=== PATIENT | female | born 1955 | race Caucasian/White ===

== ENCOUNTER 2020-01-09 06:51 | Outpatient (NON) | payer MEDICARE, SELFPAY ==
[2020-01-09 19:47] LABS: SARS-CoV-2 RNA PCR Negative
== END 2020-01-09 06:52 ==
LOC: ANHCOVIDDT 07:03
PROVIDERS: PCP Family Medicine; Visit Provider Physician Assistant
DX: Z20.828 Contact with and (suspected) exposure to other viral communicable diseases (principal)
CPT/HCPCS: 87635; C9803; U0003

== ENCOUNTER → 2021-05-09 17:37 | Outpatient (CLI) | payer MEDICARE, SELFPAY ==
--- NOTE | ~2021-05-09 | DEXA_ITS ---
Bone Density Report Name: ESSIE MARTIN Age: 66 Sex: Female Ethnicity: White Date of : 1955 Indication: postmenopausal; screening for osteoporosis; height loss; prior fracture; Referring Provider: HAMZAH OLMOS Study: Bone densitometry was performed. Exam Date: May 09, 2021 Accession number: [id number] Bone Density: Region BMD T-score Z-score Classification AP Spine (L1-L4) 1.083 0.3 2.2 Normal Femoral Neck (Left) 0.715 -1.2 0.4 Osteopenia Total Hip (Left) 0.891 -0.4 0.9 Normal Femoral Neck (Right) 0.713 -1.2 0.4 Osteopenia Total Hip (Right) 0.883 -0.5 0.9 Normal Total Hip Mean 0.887 -0.5 0.9 Normal World Health Organization criteria for BMD impression classify patients as: Normal (T-score at or above -1.0), Osteopenia (T-score between -1.0 and -2.5), or Osteoporosis (T-score at or below -2.5). 10-year Fracture Risk: FRAX not reported because: Prior hip or vertebral fracture Clinical Information Provided by Patient: Have had a previous hip or vertebral fracture Has had a low trauma fracture Patient maximum height was 65.0 Menopause Age: 56 Drinks caffeinated beverages Onset of menses at age 9 Number of children 2 Impression: The patient has low bone mass, based on the Left Femoral Neck T-score. The patient has risk factors, including: previous fracture. Discussion: INCREASED RISK OF FRACTURE DUE TO HISTORY OF FRACTURE. The patient's previous fracture puts the patient at high risk of a future fracture. In untreated patients, the risk of osteoporotic fracture increases approximately two-fold for each 1.0 SD decrease in T-score. Low bone density is not the only risk factor for fracture; also consider factors such as patient's age, frailty or poor health, risk of falling, risk of injury, previous osteoporotic fracture, family history of osteoporosis, cigarette smoking, low body weight, etc. Not everyone with a low trauma fracture has osteoporosis; osteomalacia and other metabolic bone disorders should also be considered. Patients who have osteoporosis should be evaluated for specific diseases and conditions (secondary causes) that may cause or contribute to bone loss and fracture risk. National Osteoporosis Foundation (NOF) recommends pharmacologic intervention for patients with a prior hip or vertebral fracture regardless of BMD T-score. The patient should follow a healthful lifestyle (good nutrition with adequate calcium and vitamin D, and appropriate weight-bearing exercise). Follow-Up: Consider a repeat BMD and Vertebral Fracture Assessment (VFA) exam in 2 years or sooner if medically necessary, to reassess this patient's status. Reported by: DO on 05/09/2021 6:16:00 PM. Reviewed, dictated and finalized at location ADyllan HARMON
--- NOTE | ~2021-05-09 | MM_ITS ---
EXAMINATION: MM screening ryan BI w shaista HISTORY: Screening mammogram TECHNIQUE: Craniocaudal and mediolateral oblique 3-D tomosynthesis images were obtained and synthetic 2-D images were generated. CAD analysis was submitted and interpreted. COMPARISON: No prior mammogram is available for comparison at this institution. BREAST PARENCHYMAL COMPOSITION: The breasts are heterogeneously dense, which may obscure small masses . FINDINGS: There is no evidence of suspicious mass, calcification, or architectural distortion to sugg est malignancy in either breast. IMPRESSION: 1. No mammographic evidence of malignancy. 2. Recommend routine screening mammography in one year. BI-RADS Category 1: Negative Reviewed, dictated and finalized at location A.
== END ==
PROVIDERS: PCP Family Medicine; Visit Provider Family Medicine
DX: Z12.31 Encounter for screening mammogram for malignant neoplasm of breast (principal); Z78.0 Asymptomatic menopausal state; M85.851 Other specified disorders of bone density and structure, right thigh; M85.852 Other specified disorders of bone density and structure, left thigh
CPT/HCPCS: 77063; 77067; 77080

== ENCOUNTER → 2022-08-19 10:36 | Outpatient (CLI) | payer MEDICARE, SELFPAY ==
--- NOTE | ~2022-08-19 | MM_ITS ---
EXAMINATION: MM screening ryan BI w shaista HISTORY: Screening mammogram TECHNIQUE: Craniocaudal and mediolateral oblique 3-D tomosynthesis images were obtained and synthetic 2-D images were generated. CAD analysis was submitted and interpreted. COMPARISON: 05/09/2021 bilateral screening mammogram BREAST PARENCHYMAL COMPOSITION: 3 FINDINGS: There is no evidence of suspicious mass, calcification, or architectural distortion to sugg est malignancy in either breast. There has been no suspicious interval change. IMPRESSION: 1. No mammographic evidence of malignancy. 2. Recommend routine screening mammography in one year. BI-RADS Category 1: Negative Reviewed, dictated and finalized at location A.
== END ==
PROVIDERS: PCP Family Medicine; Visit Provider Family Medicine
DX: Z12.31 Encounter for screening mammogram for malignant neoplasm of breast (principal)
CPT/HCPCS: 77063; 77067

== ENCOUNTER 2023-10-18 12:27 | Outpatient (CLI) | payer MEDICARE, SELFPAY ==
--- NOTE | ~2023-10-18 | MM_ITS ---
EXAMINATION: MM screening ryan BI w shaista HISTORY: Screening TECHNIQUE: Craniocaudal and mediolateral oblique 3-D tomosynthesis images were obtained and synthetic 2-D images were generated. CAD analysis was submitted and interpreted. COMPARISON: Comparison to multiple prior studies sequentially, with oldest reviewed study dated 05/09. BREAST PARENCHYMAL COMPOSITION: Dense: The breasts are heterogeneously dense, which may obscure small masses FINDINGS: There are developing asymmetries laterally in the right breast on CC view. The left breast is stable without evidence for malignancy. IMPRESSION: 1. Developing asymmetries of the right breast. 2. Additional mammographic views and possible breast ultrasound are recommended. BI-RADS Category 0: Incomplete: Needs additional imaging evaluation. Reviewed, dictated and finalized at location B. IMPRESSION: 1. Developing asymmetries of the right breast. 2. Additional mammographic views and possible breast ultrasound are recommended . BI-RADS Category 0: Incomplete: Needs additional imaging evaluation.
== END 2023-10-18 12:28 ==
PROVIDERS: PCP Obstetrics & Gynecology Gynecology; Visit Provider Family Medicine
DX: Z12.31 Encounter for screening mammogram for malignant neoplasm of breast (principal); R92.8 Other abnormal and inconclusive findings on diagnostic imaging of breast
CPT/HCPCS: 77063; 77067

== ENCOUNTER 2023-11-05 10:52 | Outpatient (CLI) | payer MEDICARE, SELFPAY ==
--- NOTE | ~2023-11-05 | MMUS_ITS ---
EXAMINATION: MM diagnostic ryan RT w shaista, US breast RT limited HISTORY: Follow-up right breast asymmetry TECHNIQUE: Additional 3-D tomosynthesis images of the right breast were performed and synthetic 2-D i mages were generated. CAD analysis was submitted and interpreted. High resolution Limited right breas t ultrasound was performed. COMPARISON: 05/09/2021 BREAST PARENCHYMAL COMPOSITION: . Dense: The breasts are heterogeneously dense, which may obscure sma ll masses FINDINGS: MAMMOGRAPHIC FINDINGS: There are no suspicious masses, calcifications or architectural distortion in the right breast to sug gest malignancy. ULTRASOUND: Limited right breast ultrasound: Normal heterogeneous echotexture without focal solid or cystic mass. IMPRESSION: 1. No evidence for malignancy in the right breast. 2. Routine yearly screening mammogram and regular clinical breast examination are recommended. BI-RADS Category 1: Negative Reviewed, dictated and finalized at location B. IMPRESSION: 1. No evidence for malignancy in the right breast. 2. Routine yearly screening mammogram and regular clinical breast examination a re recommended. BI-RADS Category 1: Negative
== END 2023-11-05 10:53 | disposition home or self-care (01) ==
LOC: ANHIMG 11:04
PROVIDERS: PCP Family Medicine; Visit Provider Physician Assistant Medical
DX: R92.8 Other abnormal and inconclusive findings on diagnostic imaging of breast (principal)
CPT/HCPCS: 76642; 77061; 77065; G0279

== ENCOUNTER 2024-10-18 12:15 | Emergency (ER) | payer MEDICARE, SELFPAY ==
[2024-10-18 12:22] VITALS: BP 146/80; PULSE 70; RESP 16; TEMP 36.2; O2SAT 100
--- OUTSIDE RECORDS SUMMARY | 2024-10-18 12:23 | XMS_ITS | Encounter Summary ---
Author Organization [facility] Address [address] [place] [address] Care Team Providers Care Spanish Translator Name Role Phone Juliana Carslon MD Primary Care Provider [phone] Encounter Details Date Type Department Care Team (Late Contact Info) Description 01/05/2018 Lab Requisition [facility] [address] [place] [address] Unlisted, Ordering Provider, Social History Tobacco Use Types Packs/Day Years Used Date Smoking Tobacco: Never Smokeless Tobacco: Never Alcohol Use Standard Drinks/Week Comments Yes 2 (1 standard drink = 0.6 oz pur e alcohol) Comments No Sex and Gender Information Value Date Recorded Sex Assigned at Not on file Legal Sex Female 7:33 AM [employer] Gender Identity Not on file Sexual Orientation Not on file documented as of this encounter Plan of Treatment Upcoming Encounters Date Type Department Care Team (Late Contact Info) Description 11/13/2024 3:20 PM CDT Office Visit [facility] - Dermatology [address] [place] [address], [place] [id number] Mian Mendoza MD [address] [place] [address] [address] [place] [address] documented as of this encounter Procedures Procedure Name Priority Date/Time Associated Diagnosis Comments GLUCOSE VITALITY Routine 01/06/2018 8:07 AM [employer] HEMOGLOBIN A1C Routine 01/06/2018 8:07 AM [employer] LIPID PROFILE Routine 01/06/2018 8:07 AM [employer] documented in this encounter Results * HEMOGLOBIN A1C (01/06/2018 8:07 AM ELECT[employer]) Hemoglobin A1c 5.4 4.4 - 6.3 % 01/06/2018 11:57 AM [employer]LECTR[employer]IC [facility] Estimated Average Glucose 108 mg/dL 01/06/2018 11:57 AM [facility] [facility] Comment: HbA1c Interpretation: Treatment target values recommended by ADA and other clinical organizations should be used to evaluate metabolic control in patients. Treatment Target Values: Normal : < 5.7% Pre-diabetes: 5.7-6.4% Diabetes: Equal to or greater than 6.5% Reference: [place] Diabetes Association Standards of Care in Diabetes -2014 In patients 70 years and older consider HbA1c target range of 7.0-7.5% Reference: Diabetes Mellitus in Older People: Position Statement on behalf of the International Association of Gerontology and Geriatrics (IAGG), the Diabetes Working Libertarian for Older People (EDWPOP), and the International Task Force of Experts in Diabetes. Espinoza Peña, et al. J [place] [employer]. 2012 Test results diagnostic of diabetes should be repeated for confirmation. The Tosoh G8 assay for the measurement of HbA1c is a National Glycohemoglobin Standardization Program (NGSP)certified method. Results for patients with HbE disease should be interpreted with caution as this hemoglobinopathy has been shown to interfere with the Tosoh G8 assay. Blood BLOOD SPECIMEN / Unknown 01/06/2018 8:07 AM [employer] 01/06/2018 10:04 AM [employer]IC us Ordering Provider Unlisted MD LAB - CHEMISTRY OR DERABLES Final Result [facility] [address] [phone] * (ABNORMAL) LIPID PROFILE (01/06/2018 8:07 AM E[employer]) Cholesterol Total 229(H) <200 mg/dL 01/06/2018 11:11 AM [facility] HDL 82 >40 mg/dL 01/06/2018 11:11 AM [facility] Comment: ATP III Classification of HDL Cholesterol: <40 mg/dL: Considered a major risk factor. >60 mg/dL: Considered a negative risk factor. LDL Calculated 128(H) <100 mg/dL 01/06/2018 11:11 AM [facility] Comment: ATP III Classification of LDL Cholesterol: <100 mg/dL: Optimal 100 - 129 mg/dL: Near Optimal/Above Optimal 130 - 159 mg/dL: Borderline High 160 - 189 mg/dL: High >190 mg/dL: Very High Triglycerides 95 <150 mg/dL 01/06/2018 11:11 AM [facility] Comment: ATP III Classification of Triglycerides: <150 mg/dL: Normal 150 - 199 mg/dL: Borderline High 200 - 400 mg/dL: High >500 mg/dL: Very High Blood BLOOD SPECIMEN / Unknown 01/06/2018 8:07 AM [employer] 01/06/2018 10:04 AM [employer] Ordering Provider Unlisted MD LAB - CHEMISTRY OR DERABLES Final Result Performing Organization Address City/[facility]/ZIP Co de Phone Number [address] [phone] * GLUCOSE VITALITY (01/06/2018 8:07 AM [facility]) Glucose 79 70 - 115 mg/dL 01/06/2018 10:54 AM [facility] Blood BLOOD SPECIMEN / Unknown 01/06/2018 8:07 AM [employer] 01/06/2018 10:04 AM [employer] Ordering Provider Unlisted MD LAB - CHEMISTRY OR DERABLES Final Result Performing Organization Address City/[facility]/ZIP Co de Phone Number [address] [phone] documented in this encounter Visit Diagnoses Not on filedocumented in this encounter Care Teams Spanish Translator Relationship Specialty Start Date End Date Juliana Carlson MD [address] [place] [address] PCP - General Family Medicine 12/18/15 documented as of this encounter
--- OUTSIDE RECORDS SUMMARY | 2024-10-18 12:23 | XMS_ITS | Clinical Summary ---
Author Organization [facility] [employer] Address [address] [place] [address] Care Team Providers Care Services Delivery Driver Name Role Phone Juliana Carlson MD Primary Care Provider [phone] Source Comments [facility] [employer],non-owned Affiliates and Associated Physician Practices is amultiple site organization consisting of ambulatory clinics and hospital sitesin [place], [place], [place] and [place]. This disclosure is being madepursuant to the Care Everywhere program and may not contain all information available regarding this patient. Last updated 17.[facility] [employer] Allergies No known active allergies Medications * Be aware that medications may not be up to date on this document. Alwaysverify current medications with the patient. valACYclovir (VALTREX) 1 GM tablet Take 1,000 mg by mouth once 7 Active potassium chloride SA (MICRO-K) 10 MEQ capsule Take 1 (one) capsule by mouth daily with breakfast 7 Active LORazepam (ATIVAN) 0.5 MG tablet Take 0.5 mg by mouth every 12 hours as needed 7 Active lisinopril-hydr oCHLOROthiazide (PRINZIDE; ZESTORETIC) 10-12.5 MG tablet Take 1 (one) tablet by mouth once daily 7 Active esomeprazole (NEXIUM) 40 MG capsule Take 1 (one) capsule by mouth at bedtime 7 Active polyethylene glycol (GOLYTELY;NULYT SAMARA) 240 g solution Drink 1/2 of prep at 5pm the night before test. Finish the prep at 4am the day of test. 4000 mL 9 Active Additional Information Patient not taking.Reported on 03/23/2022 rosuvastatin (CRESTOR) 10 MG tablet Take 1 (one) tablet by mouth once daily Active diclofenac sodium EC (VOLTAREN) 50 MG tablet Take 1 (one) tablet by mouth 2 times daily Active buPROPion XL 24hr (WELLBUTRIN-XL) 300 MG tablet Take 1 (one) tablet by mouth once daily 0 Active omeprazole (PRILOSEC) 40 MG capsule Take 40 mg by mouth once daily 1 Active ibandronate (BONIVA) 150 MG tablet TAKE 1 TABLET BY MOUTH MONTHLY 2 Active traZODone (DESYREL) 100 MG tablet Take 2 (two) tablets by mouth at bedtime 2 Active ketoconazole (NIZORAL) 2 % creamIndication s:Other seborrheic dermatitis Apply to affected area on b/l NLFs twice daily for two weeks for flare. 30 days supply. 30 g 1 2 Active hydrocortisone (HYTONE) 2.5 % creamIndication s:Other seborrheic dermatitis Apply to affected area on b/l NLFs twice daily for up to 2 weeks. 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 - Sunscreen handout provided History of nonmelanoma skin cancer 08/28/2014 Assessment & Plan (07/01/2020 1:39 PM CDT): - No evidence of recurrence - Sun Screen hand out provided - Q6mos FBSE Shoulder pain 12/21/2012 GERD (gastroesophageal reflux disease) 2 Hypertension Depression Fibroid Immunizations Immunization Administration Dates Next Due INFLUENZA VACCINE, TRIV. (AF LURIA, FLUZONE TRIVALENT; 6MO+) (IIV3) 03/01/2010 INFLUENZA VACCINE 12/04/2020 Family History Medical History Relation Name Comments None Known Brother Cancer - Breast Cousin Diabetes - Type 2 Father None Known Maternal Aunt None Known Maternal Grandfather None Known Maternal Grandmother None Known Maternal Uncle Hypertension Mother None Known Other None Known Paternal Aunt None Known Paternal Grandfather None Known Paternal Grandmother None Known Paternal Uncle None Known Sister Asthma Neg Hx CVA Neg Hx Cancer - Other Neg Hx Cancer - Skin, Melanoma Neg Hx Cancer - Skin, Non Melanoma Neg Hx Eczema Neg Hx Hemophilia Neg Hx Psoriasis Neg Hx Relation Name Status Comments Brother Cousin Father Maternal Aunt Maternal Grandfather Maternal Grandmother Maternal Uncle Mother Other Paternal Aunt Paternal Grandfather Paternal Grandmother Paternal Uncle Sister Social History Tobacco Use Types Packs/Day Years Used Date Smoking Tobacco: Never Smokeless Tobacco: Never Tobacco Cessation:Counseling Given: No Alcohol Use Standard Drinks/Week Comments Yes 2 (1 standard drink = 0.6 oz pur e alcohol) Comments No Sex and Gender Information Value Date Recorded Sex Assigned at Not on file Legal Sex Female 7:33 AM [facility] Gender Identity Not on file Sexual Orientation Not on file Last Filed Vital Signs Vital Sign Reading Time Taken Comments Blood Pressure 135/89 02/15/2019 11:53 AM [facility] Pulse 74 02/15/2019 11:53 AM [facility] Temperature 36.6 C (97.8 F) 02/15/2019 11:23 AM [facility] Respiratory Rate 11 02/15/2019 11:53 AM [facility] Oxygen Saturation 100% 02/15/2019 11:53 AM [facility] Inhaled Oxygen Concentration - - Weight 68 kg (150 lb) 02/15/2019 9:23 AM [facility] Height 165.1 cm (5' 5) 02/15/2019 9:23 AM [facility] Body Mass Index 24.96 02/15/2019 9:23 AM [facility] Plan of Treatment Upcoming Encounters Date Type Department Care Team (Late st Contact Info) Description 11/13/2024 3:20 PM CDT Office Visit [facility] - Dermatology [address] [place] [address], [place] [address] Mian Mendoza MD [address] [place] [address] [address] [place] [address] Health Maintenance Due Date Last Done Comments COLOGUARD (AGES 45-75) - COLON CA SCREENING 1955 CT COLONOGRAPHY - COLON CA SCREENING 1955 FIT - COLON CA SCREENING 1955 FLEX SIG - COLON CA SCREENING 1955 HEPATITIS C SCREENING 03/04/1972 DTAP/TDAP/TD VACCINES (1 - Tdap) 1973 PNEUMOCOCCAL VACCINE 50+ (1 of 1 - PCV) 2004 ZOSTER VACCINE (1 of 2) 2004 MAMMOGRAM 11/06/2021 11/07/2019, 03/06/2018, 12/16/2016, Additional history exists COVID-19 VACCINE ( - season) 2023 DEPRESSION SCREENING 03/01/2024 MEDICARE AWV CALENDAR YEAR 2024 INFLUENZA VACCINE (#1) 2024 12/04/2020, 2010 COLON MONITORING 02/15/2029 02/15/2019, 02/15/2019 COLONOSCOPY - COLON CA SCREENING 02/15/2029 02/15/2019, 02/15/2019 Colorectal Cancer Screening 02/15/2029 Respiratory Syncytial Virus (RSV) Vaccine Pt: or over 60 yrs (1 - 1-dose 75+ series) 2029 BONE DENSITY TESTING Completed 05/02/2015 HEPATITIS B VACCINE Aged Out No longe r eligible based on patient's age to complete this topic HIB VACCINE Aged Out No longer eligi ble based on patient's age to complete this topic HPV VACCINE Aged Out No longer eligi ble based on patient's age to complete this topic MENINGOCOCCAL (Group B) VACCINE SHARED DECISION-MAKING Aged Out No longer eligible based on patient's age to complete this topic MENINGOCOCCAL GROUPS A/C/Y/W VACCINE Aged Out No longer eligible based on patient's age to complete this topic Procedures Procedure Name Priority Date/Time Associated Diagnosis Comments MAMMO BILAT SCREENING Routine 11/07/2019 11:11 AM CDT Screening breast examination ENDOSCOPY, COLON, SCREENING Routine 02/15/2019 10:20 AM [facility] DEXA BONE DENSITY AXIAL SKELETON Routine 05/02/2015 8:37 AM [facility] from Last 3 Months or Most Recently Relevant to Health Maintenance Results * MAMMO BILAT SCREENING (11/07/2019 11:11 AM CDT) Anatomical Region Laterality Modality Breast Bilateral Mammography 11/09/2019 9:37 AM CDT Impressions 11/09/2019 10:19 AM CDT IMPRESSION: No mammographic evidence of malignancy. ASSESSMENT: BI-RADS Category 1: Negative mammogram. RECOMMENDATION: Bilateral screening mammogram in one year. Report dictated by Tony Mcginnis DO, MPH (educational institution president). I, Dr. EDDY JAIN M.D. have personally reviewed and interpreted this examination/study. This report was electronically signed by EDDY JAIN M.D. on 11/09/2019 10:19 AM . Narrative 11/09/2019 10:19 AM CDT BILATERAL SCREENING MAMMOGRAM DATE: 11/07/2019 11:13 AM. COMPARISON: Multiple prior mammograms, most recently 2018 and 2016. HISTORY: Screening mammogram. TECHNIQUE: Images were performed using 3D tomosynthesis images with reconstructed/synthetic 2D images and CAD analysis. BREAST COMPOSITION: The breasts are heterogeneously dense, which may obscure small masses. FINDINGS: There is no suspicious mass, clustered microcalcification, or architectural distortion in either breast on 2D or 3D images. There has been no change in the mammographic appearance compared with the prior study. us Juliana Carlson MD MAMMO ORDERABLES Final Result * ENDOSCOPY, COLON, SCREENING (02/15/2019 10:20 AM [facility]) Report Endoscopy POC Endoscopy Department Report _ Patient Name: Aleida Angel Procedure Date: 02/15/2019 10:20 AM Date of : 1955 Classification: Outpatient Gender: Female Ethnicity: Not or Race: White _ Providers: Shey Abbasi MD, Wandy Cherry (Fellow) Referring MD: Procedure: Colonoscopy Indications: Screening for colorectal malignant neoplasm. Last colonoscopy was performed 2011. Report not available. Medications: Monitored Anesthesia Care Description of Procedure: Pre-Anesthesia Assessment: - Prior to the procedure, a History and Physical was performed, and patient medications and allergies were reviewed. The patient's tolerance of previous anesthesia was also reviewed. The risks and benefits of the procedure and the sedation options and risks were discussed with the patient. All questions were answered, and informed consent was obtained. Prior Anticoagulants: The patient has taken no previous anticoagulant or antiplatelet agents. ASA Grade Assessment: II - A patient with mild systemic disease. After reviewing the risks and benefits, the patient was deemed in satisfactory condition to undergo the procedure. After I obtained informed consent, the scope was passed under direct vision. Throughout the procedure, the patient's blood pressure, pulse, and oxygen saturations were monitored continuously. The PCF-[id number] was introduced through the anus and advanced to the terminal ileum, with identification of the appendiceal orifice and IC valve. The colonoscopy was performed without difficulty. The patient tolerated the procedure well. The quality of the bowel preparation was evaluated using the BBPS (Bradner Bowel Preparation Scale) with scores of: Right Colon = 2 (minor amount of residual staining, small fragments of stool and/or opaque liquid, but mucosa seen well), Transverse Colon = 2 (minor amount of residual staining, small fragments of stool and/or opaque liquid, but mucosa seen well) and Left Colon = 2 (minor amount of residual staining, small fragments of stool and/or opaque liquid, but mucosa seen well). The total BBPS score equals 6. The quality of the bowel preparation was good. The terminal ileum, ileocecal valve, appendiceal orifice, and rectum were photographed. Findings: A firm palpable area was noted on digital rectal exam, likely consistent with patient's known uterine fibroid. The perianal and digital rectal examinations were otherwise normal. External and internal hemorrhoids were found. Discontinuous areas of nonbleeding mild apthous ulceration of mucosa with no stigmata of recent bleeding were present in the cecum. This is likely prep or NSAID related. Biopsies were taken with a cold forceps for histology. A 4 mm polyp was found in the descending colon. The polyp was sessile. The polyp was removed with a cold biopsy forceps. Resection and retrieval were complete. The terminal ileum appeared normal. Estimated Blood Loss: Estimated blood loss: none. Complications: No immediate complications. Impression: - External and internal hemorrhoids. - Mucosal ulceration. Biopsied. - One 4 mm polyp in the descending colon, removed with a cold biopsy forceps. Resected and retrieved. - The examined portion of the ileum was normal. Recommendation: - Patient has a contact number available for emergencies. The signs and symptoms of potential delayed complications were discussed with the patient. Return to normal activities tomorrow. Written discharge instructions were provided to the patient. - Resume previous diet. - Continue present medications. - Await pathology results. - Repeat colonoscopy in 5-10 years for surveillance. - Return to GI clinic as previously scheduled. Procedure Code(s): --- Professional --- 73427, Colonoscopy, flexible; with biopsy, single or multiple Diagnosis Code(s): --- Professional --- Z12.11, Encounter for screening for malignant neoplasm of colon K63.3, Ulcer of intestine D12.4, Benign neoplasm of descending colon CPT copyright 2016 [employer]. All rights reserved. The codes documented in this report are preliminary and upon software test developer review may be revised to meet current compliance requirements. ____ Shey Abbasi MD 02/15/2019 11:32:07 AM Note Initiated On: 02/15/2019 10:20 AM Number of Addenda: 0 [facility] [address] [place] [address] [facility] 02/15/2019 10:2 0 AM [facility] us Shey Pryor MD GI PROCEDURE ORDERABLES E dited Result - Final [facility] * DEXA BONE DENSITY AXIAL SKELETON (05/02/2015 8:37 AM [facility]) Anatomical Region Laterality Modality Other Narrative 05/02/2015 4:49 PM [facility] Examination: Dual energy x-ray absorptiometry of the lumbar spine and hip. Clinical Indication: 60-year-old female. Study indications for evaluation of osteoporosis. Findings: Detailed data from the exam is sent separately to the ordering physician and is also available on [employer], the Radiology Department's computerized picture archive system SUMMARY: No prior study available for comparison. BONE MINERAL DENSITY (BMD) lumbar spine (L1-4): Normal; T-score 1.6 BONE MINERAL DENSITY (BMD) left hip: Normal; T-score -0.7 FRAX 10 year fracture risk Not calculated because all T scores for spine total, hip total, femoral neck at or above -1.0. Definitions: T-score = Standard Deviation Normal: A value for bone mineral density(BMD) within 1 standard deviation of the young adult reference mean. (T-score above -1) Low bone mass(osteopenia): A value for bone mineral density(BMD) more than 1 standard deviation below the young adult mean, but less than 2.5 standard deviations below the young adult mean. ( T-score between -1 and -2.5) Osteoporosis: A value for bone mineral density 2.5 standard deviations or more below the young adult mean. ( T-score at or below -2.5) Severe osteoporosis: Osteoporosis + the presence of one or more fragility fractures. Please note that T-score values are important in determining increased risk for fractures. The T-score represents the standard deviation above or below the mean bone mineral density for young adults. With each -1 standard deviation decrease in bone mineral density, the risk for fracture doubles exponentially. A T-score of -1 will double the risk , and -2 will be 4 times the risk. As a rule of thumb, a T-score of -1 to -2.5 indicates increasing degrees of osteopenia. This report was approved by Gabo Silver M.D. on 05/02/2015 4:02 PM . I, Dr. COSMO SERVIN M.D. have personally reviewed and interpreted this examination/study. This report was electronically signed by COSMO SERVIN M.D. on 05/02/2015 4:49 PM . Procedure Note Cosmo Servin MD - 05/29/2017 Examination: Dual energy x-ray absorptiometry of the lumbar spine andhip. Clinical Indication: 60-year-old female. Study indications for evaluationof osteoporosis. Findings: Detailed data from the exam is sent separately to the orderingphysician and is also available on [employer], the Radiology Department'[employer] picture archive system SUMMARY: No prior study available for comparison. BONE MINERAL DENSITY (BMD) lumbar spine (L1-4): Normal; T-score 1.6 BONE MINERAL DENSITY (BMD) left hip: Normal; T-score -0.7 FRAX 10 year fracture risk Not calculated because all T scores for spine total, hip total, femoralneck at or above -1.0. Definitions: T-score = Standard Deviation Normal: A value for bone mineral density(BMD) within 1 standard deviationof the young adult reference mean. (T-score above -1) Low bone mass(osteopenia): A value for bone mineral density(BMD) more than1 standard deviation below the young adult mean, but less than 2.5standard deviations below the young adult mean. ( T-score between -1 and-2.5) Osteoporosis: A value for bone mineral density 2.5 standard deviations ormore below the young adult mean. ( T-score at or below -2.5) Severe osteoporosis: Osteoporosis + the presence of one or more fragilityfractures. Please note that T-score values are important in determining increasedrisk for fractures. The T-score represents the standard deviation above orbelow the mean bone mineral density for young adults. With each -1standard deviation decrease in bone mineral density, the risk for fracture doubles exponentially. A T-score of-1 will double the risk , and -2 will be 4 times the risk. As a rule ofthumb, a T-score of -1 to -2.5 indicates increasing degrees ofosteopenia. This report was approved by Gabo Silver M.D. on 05/02/2015 4:02 PM. I, Dr. COSMO SERVIN M.D. have personally reviewed and interpreted thisexamination/study. This report was electronically signed by COSMO SERVIN M.D. on 05/02/20154:49 PM . Juliana Carlson MD DEXA ORDERABLES Final Result from Last 3 Months or Most Recently Relevant to Health Maintenance Insurance [facility] MANAGED MEDICARE ADV Care Teams Services Delivery Driver Relationship Specialty Start Date End Date Juliana Carlson MD [address] [place] [address] PCP - General Family Medicine 12/18/15
--- OUTSIDE RECORDS SUMMARY | 2024-10-18 12:23 | XMS_ITS | Clinical Summary ---
Author Organization [facility] Address [address] [place] [address] Care Team Providers Care Mannequin Mounter Name Role Phone Juliana Carlson MD Primary Care Provider [phone] Allergies No known active allergies Medications potassium chloride CR (MICRO-K) 10 MEQ CR capsule Take 1 capsule (10 mEq total) by mouth daily. Active rosuvastatin (CRESTOR) 10 MG tablet Take 1 tablet (10 mg total) by mouth daily. Active diclofenac EC (VOLTAREN) 75 MG tablet Take 1 tablet (75 mg total) by mouth 2 (two) times daily. Active omeprazole (PRILOSEC) 40 MG capsule Take 1 capsule (40 mg total) by mouth daily. 07/29/2022 Active buPROPion XL (WELLBUTRIN XL) 300 MG 24 hr tablet Take 1 tablet (300 mg total) by mouth every morning. 07/29/2022 Active lisinopril-hydr oCHLOROthiazide (ZESTORETIC) 10-12.5 MG tablet Take 1 tablet by mouth 2 (two) times daily. Active ibandronate (BONIVA) 150 MG tablet Take 1 tablet (150 mg total) by mouth every 28 days. 07/30/2022 Active traZODone (DESYREL) 100 MG tablet Take 1 tablet (100 mg total) by mouth nightly at bedtime. Active cetirizine (ZYRTEC) 5 MG tablet Take 1 tablet (5 mg total) by mouth daily. Active Social History Tobacco Use Types Packs/Day Years Used Date Smoking Tobacco: Never Passive Smoke Exposure: Never Smokeless Tobacco: Never Tobacco Cessation:Counseling Given: No Alcohol Use Standard Drinks/Week Comments Never 0 (1 standard drink = 0.6 oz pur e alcohol) seldom PHQ-2 Answer Date Recorded Patient Health Questionnaire-2 Score 0 08/05/2022 Comments No Sex and Gender Information Value Date Recorded Sex Assigned at Not on file Legal Sex Female 7:55 PM CDT Gender Identity Not on file Sexual Orientation Not on file Last Filed Vital Signs Vital Sign Reading Time Taken Comments Blood Pressure 155/88 08/05/2022 2:01 PM CDT Pulse 74 08/05/2022 1:54 PM CDT Temperature 37 C (98.6 F) 08/05/2022 1:54 PM CDT Respiratory Rate - - Oxygen Saturation 99% 08/05/2022 1:54 PM CDT Inhaled Oxygen Concentration - - Weight 71.1 kg (156 lb 12.8 oz) 08/05/2022 1:54 PM CDT Height 165.1 cm (5' 5) 08/05/2022 1:54 PM CDT Body Mass Index 26.09 08/05/2022 1:54 PM CDT Plan of Treatment Health Maintenance Due Date Last Done Comments Colorectal Cancer Screening Colonoscopy (10 Years) 1955 Hepatitis C 1972 DTaP, Tdap and Td Vaccines (1 - Tdap) 1973 Mammogram Screening 1994 Pneumococcal Vaccine: 50+ Years (1 of 1 - PCV) 2004 Zoster Vaccines (1 of 2) 2004 Annual Medicare Wellness Visit 2019 Dexa Scan (General) 2019 COVID-19 Vaccine ( season) 2023 12/16/2021, 08/25/2021, 01/01/2021, Additional history exists RSV Immunization or 60+ Years (1 - 1-dose 75+ series) 2029 Meningococcal B Vaccine Aged Out No l onger eligible based on patient's age to complete this topic Meningococcal Vaccine Aged Out No lilia fortino eligible based on patient's age to complete this topic RSV Immunizations Under 20 Months Aged Out No longer eligible based on patient's age to complete this topic Insurance [facility] Care Teams Mannequin Mounter Relationship Specialty Start Date End Date Juliana Carlson MD [address] [place] [address] PCP - General FAMILY PRACTICE 06/01/22
--- NOTE | 2024-10-18 12:46 | ED.GENADULT ---
HPI - General Adult General Chief complaint: Extremity Injury, Upper Stated complaint: muscle pull Source: patient Mode of arrival: ambulatory Limitations: no limitations History of Present Illness HPI narrative: 69 y/o female presented for c/o right side pain x3 weeks. Denies specific injury. States pain started after lifting groceries out of the trunk, which is not unusual for her. Rates pain 10/10 this morning, currently 4/10. She can twist or palpate the area to recreate the pain. She has been taking Tylenol and using pain patch. Pt was prescribed muscle relaxer by pcp, and endorses temporary improvement when using it.Denies associated n/v/d/f/c, constipation, cough or rash to the area. Related Data Allergies Allergy/AdvReac Type Severity Reaction Status Date / Time No Known Drug Allergies Allergy NOT AN Verified 10/18/24 12:25 ALLERGY! Review of Systems Review of Systems: CONSTITUTIONAL: Denies body aches, fever, chills, or sweats. CARDIOVASCULAR: Denies chest pain, palpitations, or edema. RESPIRATORY: Denies cough or dyspnea. GASTROINTESTINAL: Denies abdominal pain, nausea, vomiting, or diarrhea. GENITOURINARY: Denies dysuria or hematuria. SKIN: Denies rash MUSCULOSKELETAL: Reports right rib pain NEUROLOGIC: Denies headache, numbness, tingling, or weakness. All systems reviewed & are unremarkable except as noted in HPI and below PMFSH Past Medical History Medical History Osteopenia Insomnia Chronic low back pain Essential hypertension Gastro-esophageal reflux disease without esophagitis Major depressive disorder, single episode, unspecified Mixed hyperlipidemia Pre-diabetes Family History Family History Mother Family history of osteoporosis Hypertension Family history of osteoarthritis Father Family history of glaucoma Family history of diabetes mellitus in first degree relative Family history of coronary artery disease Social History Social History Smoking status: Never smoker Second hand tobacco smoke exposure: Yes Alcohol intake: current Alcohol use details: rare Substance use: never Substance use type: does not use Lack of Transportation: No Lack of Food: Never True Current Housing: I Have Housing Concerned About Future Housing: No Difficulty Paying Gas/Electric Bills: No Difficulty Paying for Meds: No Currently Unemployed: No Education: High School Diploma/GED Difficulty w/ Childcare or Family Care: No Living arrangements: with family Occupation/Education: retired Gender identity (if verbalized by the patient): Female Sexual Orientation (if Verbalized by the Patient): Straight or Heterosexual Spiritual care concerns: No Agree to blood products: Yes Comments At time of signature, I have reviewed and agree with nursing past medical, surgical, social and family history unless otherwise noted. Please see nursing chart for further information. There is no relevant family history pertinent to the presenting complaint Exam Narrative: GENERAL: Well-appearing ENT: Mucous membranes pink and moist. CHEST: No respiratory distress. Clear to auscultation. HEART: Regular rate and rhythm. ABDOMEN: Soft, nontender, nondistended, normal active bowel sounds. MUSCULOSKELETAL: Right lateral abdomen/waist and lower ribs generalized tenderness with palpation. No point tenderness. No bruising or rash. SKIN: Warm, dry, no rash. Capillary refill normal. Normal skin turgor. NEURO: No focal deficits. Alert and oriented x3. Gait steady. PSYCH: Normal affect. GI: Abdomen image:  1. location of pain Course Course Emergency Course: Patient is aware of diagnosis, understands and agrees to treatment plan. Anticipatory guidance given. Patient agrees to follow-up as directed and is aware of reasons to seek care at the emergency department. Portions of this record may have been created with voice recognition software Level of Care: Express Care Visit Vital Signs Vital signs: Vital Signs Temperature 97.1 F L 10/18/24 12:22 Pulse Rate 70 10/18/24 12:22 Respiratory Rate 16 10/18/24 12:22 Blood Pressure 146/80 H 10/18/24 12:22 Pulse Oximetry 100 10/18/24 12:22 Oxygen Delivery Room Air 10/18/24 12:22 Temperature 97.1 F L 10/18/24 12:22 Pulse Rate 70 10/18/24 12:22 Respiratory Rate 16 10/18/24 12:22 Blood Pressure 146/80 H 10/18/24 12:22 Pulse Oximetry 100 10/18/24 12:22 Oxygen Delivery Room Air 10/18/24 12:22 Medical Decision Making MDM Narrative Medical decision making narrative: Discussed physical exam findings. Shared decision making, deferred imaging at this time. Will continue muscle relaxer previously prescribed by pcp, will add prednisone. Advised supportive measures and signs/symptoms to go to the ER. Pt is appropriate for outpt treatment and f/u. Differential Diagnosis Differential Diagnosis: gallbladder disease, PUD, appendicitis, pancreatitis, hepatitis, pyelonephritis, renal stone, GERD, bowel obstruction, PE, AAA, musculoskeletal strain Vital Signs Vital Signs: Vital Signs Temperature 97.1 F L 10/18/24 12:22 Pulse Rate 70 10/18/24 12:22 Respiratory Rate 16 10/18/24 12:22 Blood Pressure 146/80 H 10/18/24 12:22 Pulse Oximetry 100 10/18/24 12:22 Oxygen Delivery Room Air 10/18/24 12:22 Temperature 97.1 F L 10/18/24 12:22 Pulse Rate 70 10/18/24 12:22 Respiratory Rate 16 10/18/24 12:22 Blood Pressure 146/80 H 10/18/24 12:22 Pulse Oximetry 100 10/18/24 12:22 Oxygen Delivery Room Air 10/18/24 12:22 reviewed Discharge Plan Discharge Clinical Impression: Musculoskeletal pain Patient Disposition: Home Condition: Stable Instructions: Antibiotic Form, Musculoskeletal Pain (ED) Additional Instructions: Rest. Avoid pushing, pulling, lifting or anything that worsens the symptoms Bend from the knees and use proper body mechanics Tylenol 1000mg every 8 hours as needed You can continue the previously prescribed muscle relaxer Take the steroid as directed Alternate ice/heat to the site. Lidocaine or salon pas pain patch or use pain cream like icy/hot or biofreeze. Follow up with your primary care provider as needed in 1 week Go to the ER for worsening symptoms or concerns Patient Language: Icelandic Prescriptions: New prednisone 20 mg tablet 40 mg PO DAILY 5 Days Qty: 10 0RF No Action ibandronate 150 mg tablet 150 mg PO MONTHLY Qty: 3 5RF Magic Mouthwash (Dr. Burciaga) 120 mL suspension 30 ml PO .q6 PRN (Reason: mouth discomfort) Qty: 120 0RF Rx Instructions: diphenhydramine 12.5 mg/5 mL oral elixir 40 mL; Lidocaine Viscous 2 % mucosal solution 40 mL; Maalox 200 mg-200 mg-20 mg/5 mL oral suspension 40 mL; Per 120 mL bupropion HCl 300 mg tablet extended release 24 hr See Rx Instructions .ROUTE .COMPLEX Qty: 90 2RF Dose Instruction: TAKE 1 TABLET BY MOUTH EVERY MORNING Rx Instructions: TAKE 1 TABLET BY MOUTH EVERY MORNING lisinopril-hydrochlorothiazide 10-12.5 mg tablet 1 tablet PO BID Qty: 180 1RF diclofenac sodium 75 mg tablet,delayed release (DR/EC) See Rx Instructions .ROUTE .COMPLEX Qty: 180 0RF Dose Instruction: TAKE 1 TABLET BY MOUTH TWICE DAILY Rx Instructions: TAKE 1 TABLET BY MOUTH TWICE DAILY omeprazole 40 mg capsule,delayed release(DR/EC) 40 mg PO DAILY Qty: 90 3RF potassium chloride 20 mEq tablet extended release 20 meq PO .EVERY OTHER DAY Qty: 90 1RF trazodone 100 mg tablet 200 mg PO QHS Qty: 180 3RF metoprolol succinate 25 mg tablet extended release 24 hr 25 mg PO DAILY Qty: 90 2RF Rx Instructions: at HS lubiprostone [Amitiza] 24 mcg capsule 24 mcg PO BID Qty: 60 3RF valacyclovir [Valtrex] 500 mg tablet 500 mg PO DAILY Qty: 90 1RF cyclobenzaprine 5 mg tablet 5 mg PO TID PRN (Reason: muscle spasm) Qty: 30 0RF Follow-up/Referrals: Juliana Carlson MD [Primary Care Provider, Family Practice]
== END 2024-10-18 12:52 | disposition home or self-care (01) ==
PROVIDERS: Emergency Provider Nurse Practitioner Family; PCP Family Medicine
DX: R10.9 Unspecified abdominal pain (principal); M85.80 Other specified disorders of bone density and structure, unspecified site; I10 Essential (primary) hypertension; K21.9 Gastro-esophageal reflux disease without esophagitis; E78.2 Mixed hyperlipidemia; R73.03 Prediabetes; F32.9 Major depressive disorder, single episode, unspecified
CPT/HCPCS: 99213; G0463